=== PATIENT | female | born 1970 | race African-American/Black ===

== ENCOUNTER 2019-07-13 22:05 | Emergency (ER) | payer MEDICAID, MEDICARE ==
[~2019-07-13] VITALS: Ht 170.2 cm; Wt 68.0 kg
[2019-07-13 22:20] VITALS: BP 136/89
--- NOTE | 2019-07-13 22:20 | NUR ---
ED Nurse Note: Pt walked into ED for c/o lower back pain and bilat ankle swelling onset approx 3 weeks ago. Pt states she has lower back pain that radiates down L leg. Pt denies any recent injury. Pt also has bilat ankle swelling. Pt was recently seen at multiple clinics for same complaint. Pt was given lasix but says prescription was only for 3 days. Pt is otherwise aaox4, no acute distress noted.
[2019-07-13] MEDS ORDERED: ROBAXIN-750750 MG PO (22:40)
[2019-07-13] MEDS ORDERED: FUROSEMIDE40 MG ORAL (22:40)
[2019-07-13] MEDS ORDERED: LIDODERM700 M1 TOPIC (22:40)
[2019-07-13] MEDS ORDERED: PREDNISONE20 MG ORAL (22:40)
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
[2019-07-13 23:10] VITALS: BP 130/95
--- NOTE | 2019-07-13 23:10 | NUR ---
ER DISCHARGE NOTE: Patient is cleared to be discharged per ERMD, pt is aox4, on room air, with stable vital signs. pt was given dc and prescription instructions, pt was able to verbalize understanding, pt id band removed. pt is able to ambulate with steady gait. pt took all belongings.
== END 2019-07-13 23:10 | disposition home or self-care (01) ==
LOC: EMR 22:52
DX: M54.30 Sciatica, unspecified side (principal); R60.0 Localized edema
CPT/HCPCS: 99282

== ENCOUNTER 2019-11-27 21:59 | Emergency (ER) | payer BC, MEDICARE ==
[~2019-11-27] VITALS: Ht 167.6 cm; Wt 95.3 kg
[~2019-11-27 21:59] MED LIST: FUROSEMIDE40 MG ORAL; LIDODERM700 M1 TOPIC; PREDNISONE20 MG ORAL; ROBAXIN-750750 MG PO
[2019-11-27 22:15] VITALS: BP 143/89
--- NOTE | 2019-11-27 22:15 | NUR ---
ED Nurse Note: Pt walked into ED from home for c/o bilat foot edema that has been a chronic issue for over a year, but states it has recently become worse. Pt reports being on her feet for 10+ hours a day at work recently which has made it worse. She also notes rash to bilat arms and neck which she is concerned with. Pt is aaox4, breathing is normal and unlabored. Pt is ambulatory with steady gait.
[2019-11-27] MEDS ORDERED: hydroCHLOROthiazide 25mg cap ONE (22:55)
[2019-11-27] MEDS ORDERED: BETAMETHASONE D15 G2 TP (23:08)
[2019-11-27] MEDS ORDERED: HYDROCHLOROTHIA25 MG ORAL (23:08)
[2019-11-27] MEDS ORDERED: hydroCHLOROthiazide 25mg cap ORAL ONE (23:15)
--- NOTE | 2019-11-27 23:17 | Emergency Room Report ---
History of Present Illness General Chief Complaint: Edema Source: Patient Present Illness HPI Patient is a 49-year-old female presents after increased generalized body rash. She reports having rash primarily to her extremities. She has intermittent episodes of itchiness. As she had previously used permethrin cream without any improvement. Had been using triamcinolone cream which had somewhat helped. She had previous a skin biopsy of the lesions by dermatology but did not follow- up. Patient states that she had some swelling to her legs which began after working and standing for many hours. She had also been reportedly keeping her legs dependent in a car. Allergies: Coded Allergies: No Known Allergies (Unverified , 07/13/19) COVID-19 Screening Contact w/high risk pt: No Recent Travel to affected area: No Experienced COVID-19 symptoms?: No COVID-19 Testing performed TUNE UP MECHANIC: No Patient History Past Medical History: see triage record Last Menstrual Period: 09/21/2019 Now: No Reviewed Nursing Documentation: PMH: Agreed; PSxH: Agreed Nursing Documentation-PMH Past Medical History: No Stated History Review of Systems All Other Systems: negative except mentioned in HPI Physical Exam Vital Signs Date Time Temp Pulse Resp B/P (MAP) Pulse Ox O2 Delivery O2 Flow Rate FiO2 11/27/19 22:14 91 19 143/89 (107) 97 Room Air General Appearance: well appearing, no apparent distress, GCS 15, obese Head: normocephalic, atraumatic ENT: hearing grossly normal, normal voice Neck: full range of motion, supple Respiratory: no respiratory distress, speaking full sentences Cardiovascular #1: normal inspection, edema - Trace edema to the feet Musculoskeletal: normal inspection, gait/station normal, swelling, no calf tenderness Neurologic: alert, motor strength/tone normal, sock boarder III-XII nml as tested, normal gait Psychiatric: mood/affect normal Skin: other - Generalized patchy rash with papular lesions. Medical Decision Making Diagnostic Impression: Primary Impression: Skin rash Additional Impression: Ankle edema, bilateral ER Course Patient present for skin rash. Differential diagnosis include was not limited to contact dermatitis, eczema, lichen simplex chronicus, among others. Patient has a benign exam and does not appear to require any imaging or laboratory testing at this time. Patient denies any evidence of heart failure at this time. Dependent edema appears to be the most likely cause although recent possibility of some systemic allergies causing the swelling. Patient was advised to keep her legs elevated. She advised to use steroid cream for itchiness. She is advised to follow-up with dermatology for recheck. Patient was agreeable to discharge plan. The patient is advised to follow up with primary care doctor in 1-2 days. Patient is advised to return if any worsening condition or if any changes in status that are concerning. This report is dictated with [employer] rolled seat trimmer software which may occasionally lead to discrepancies related to use of this software. Last Vital Signs Date Time Temp Pulse Resp B/P (MAP) Pulse Ox O2 Delivery O2 Flow Rate FiO2 11/27/19 22:14 91 19 143/89 (107) 97 Room Air Status: improved Disposition: HOME, SELF-CARE Condition: Stable Scripts Betamethasone Dipropionate (BETAMETHASONE DIPROPIONATE) 15 Gm Oint...g. 15 GM TP TWICE A DAY for 7 Days, GM Prov: Alonso Stephenson MD 11/27/19 Hydrochlorothiazide* (HYDROCHLOROTHIAZIDE*) 25 Mg Tablet 25 MG ORAL DAILY, #5 TAB Prov: Alonso Stephenson MD 11/27/19 Patient Instructions: Rash, Peripheral Edema Additional Instructions: Follow up with your medical aides teacher. Alonso Stephenson MD Nov 27, 2019 23:17
[2019-11-27 23:20] VITALS: BP 135/90
== END 2019-11-27 23:20 | disposition home or self-care (01) ==
LOC: EMR 22:40
DX: R21 Rash and other nonspecific skin eruption (principal); R60.0 Localized edema; E66.9 Obesity, unspecified; Z68.33 Body mass index [BMI] 33.0-33.9, adult
CPT/HCPCS: 99282

== ENCOUNTER 2020-03-05 20:49 | Emergency (ER) | payer MEDICARE, OTHER ==
[~2020-03-05] VITALS: Ht 167.6 cm; Wt 97.1 kg
[~2020-03-05 20:49] MED LIST changes: +BETAMETHASONE D15 G2 TP; +HYDROCHLOROTHIA25 MG ORAL
--- NOTE | 2020-03-05 21:05 | NUR ---
ED Nurse Note: Patient walked into ED from home for c/o callous to lateral aspect of L big toe. She states it causes pain when wearing her closed toe shoes at work. AAOX4, breathing is normal and unlabored. No other complaints at this time.
--- NOTE | 2020-03-05 21:50 | NUR ---
ED Nurse Note: ERMD bedside.
[2020-03-05] MEDS ORDERED: HYDROCHLOROTHIA25 MG ORAL (21:55)
[2020-03-05] MEDS ORDERED: IBUPROFEN600 M1 ORAL (21:55)
--- NOTE | 2020-03-05 21:55 | NUR ---
ED Nurse Note: ERMD removed callous. Pt feels some relief in pain.
[2020-03-05 22:00] VITALS: BP 132/88
[2020-03-05] MEDS ORDERED: Bacitracin Oint UD TOPIC ONE (22:00)
--- NOTE | 2020-03-05 22:21 | Emergency Room Report ---
History of Present Illness General Chief Complaint: Lower Extremity Injury Present Illness HPI Disclaimer: Please note that this report is being documented using [employer] technology. This can lead to erroneous entry secondary to incorrect interpretation by the dictating instrument. HPI: 50-year-old female history of hypertension noncompliant with her medications for the past month presented with left first toe pain. She was trying to remove a callus approximately 1 day ago when she accidentally cut her toe. She complains of pain in the first toe. Worse with wearing closed toed shoes. She was at work the shoes were bothering her foot so she came to the ER for evaluation. She has a history of hypertension but has been out of her medication for the past month. She currently takes hydrochlorothiazide. Amb ulatory on arrival. Allergies: Coded Allergies: No Known Allergies (Unverified , 07/13/19) COVID-19 Screening Contact w/high risk pt: No Recent Travel to affected area: No Experienced COVID-19 symptoms?: No COVID-19 Testing performed LI[employer]OR STORE MANAGER: No Patient History Reviewed Nursing Documentation: PMH: Agreed; PSxH: Agreed Review of Systems All Other Systems: negative except mentioned in HPI Physical Exam Vital Signs Date Time Temp Pulse Resp B/P (MAP) Pulse Ox O2 Delivery O2 Flow Rate FiO2 03/05/20 20:55 98.1 92 18 133/85 (101) 99 Room Air Sp02 EP Interpretation: reviewed, normal General Appearance: well appearing, no apparent distress Head: normocephalic, atraumatic Eyes: bilateral eye PERRL, bilateral eye EOMI ENT: hearing grossly normal, moist mucus membranes Neck: full range of motion, supple Respiratory: lungs clear, normal breath sounds, no rhonchi, no respiratory distress, no retraction, no wheezing Cardiovascular #1: normal peripheral pulses, regular rate, rhythm, no murmur Gastrointestinal: non tender, soft, non-distended, no guarding Neurologic: alert, oriented x3, no focal defects Skin: normal color, warm/dry, other - Small flap avulsion noted to first toe no erythema tender to palpation no drainage no swelling Procedures Additional Procedure Procedure Narrative Wound debridement Verbal consent obtained site clean normal saline site was the left first toe. Procedure was flap of skin was removed by me. No closure required. Patient tolerated procedure well without complication. Medical Decision Making Diagnostic Impression: Primary Impression: Callus of foot Additional Impression: History of hypertension ER Course Patient presented with small superficial laceration of a callus of her foot. I did debride the wound. Dressing was applied. No signs of infection. Patient has a history of hypertension but off her medication for the past month. I did refill her hydrochlorothiazide. Stable for discharge. Return precautions were given Last Vital Signs Date Time Temp Pulse Resp B/P (MAP) Pulse Ox O2 Delivery O2 Flow Rate FiO2 03/05/20 22:00 98.1 90 18 132/88 99 Room Air Disposition: HOME, SELF-CARE Condition: Stable Scripts Ibuprofen* (MOTRIN*) 600 Mg Tablet 600 MG ORAL Q6H PRN for FOR PAIN, #20 TAB 0 Refills Prov: Carl Vieira M.D. 03/05/20 Hydrochlorothiazide* (HYDROCHLOROTHIAZIDE*) 25 Mg Tablet 25 MG ORAL DAILY, #30 TAB Prov: Carl Vieira M.D. 03/05/20 Patient Instructions: Bunion (Hallux Valgus) Additional Instructions: Patient is instructed to follow-up with her primary care doctor, primary care clinic or [facility] in 1 to 2 days. Patient instructed to return for any worsening symptoms or concerns. Carl Vieira M.D. Mar 05, 2020 22:21
== END 2020-03-05 22:00 | disposition home or self-care (01) ==
LOC: EMR 21:18
DX: L84 Corns and callosities (principal); I10 Essential (primary) hypertension; S91.112A Laceration without foreign body of left great toe without damage to nail, initial encounter; X58.XXXA Exposure to other specified factors, initial encounter; Y92.9 Unspecified place or not applicable
CPT/HCPCS: 99282